=== PATIENT | female | born 1985 | race African-American/Black ===

== ENCOUNTER 2023-11-12 22:18 | Emergency (ER) | payer OTHER, SELFPAY ==
[2023-11-12 22:33] VITALS: BP 144/103
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
[2023-11-12] MEDS: NORVASC 7.5 MG PO (23:47)
[2023-11-12] MEDS: ELIQUIS 5 MG PO (23:48)
[2023-11-12] MEDS: COREG 50 MG PO (23:48)
[2023-11-13 00:01] LABS: % Eosinophils 2.5 % (0-6); % Immature Granulocytes 0.2 % (0-0.5); % Lymphocytes 38.5 % (20.5-51.1); % Monocytes 5.3 % (1.7-9.3); % Neutrophils 52.5 % (42.2-75.2); Absolute Basophils 0.1 10^3/uL (0-0.2); Absolute Eosinophils 0.1 10^3/uL (0-0.7); Absolute Lymphocytes 1.9 10^3/uL (1.2-3.4); Absolute Monocytes 0.3 10^3/uL (0.1-0.6); Absolute Neutrophils 2.6 10^3/uL (1.4-6.5); Hematocrit 30.5 % (37.0-47.0); Mean Corp Hgb Conc. 36.1 g/dL (33.0-37.0); Mean Corpuscular Hgb 32.5 pg (27.0-31.0); Mean Corpuscular Volume 90.2 fL (81.0-99.0); Mean Platelet Volume 8.6 fL (7.4-10.4); Nucleated Red Blood Cells % 0 %; Platelet Count 249 10^3/uL (130-400); Red Blood Cell Count 3.38 10^6/uL (4.20-5.40); White Blood Cell Count 4.9 10^3/uL (4.8-10.8)
[2023-11-13 00:11] LABS: HCG, Serum Qualitative Screen Negative
[2023-11-13 00:14] LABS: Alcohol 165 mg/dl; Blood Urea Nitrogen 18 mg/dl (7-17); Calcium 9.4 mg/dl (8.4-10.2); Carbon Dioxide 23 mmol/L (22-30); Chloride 111 mmol/L (98-107); Estimated Creatinine Clearance 41 ml/min; Glucose 83 mg/dl (70-99); Potassium 4.1 mmol/L (3.5-5.1); Sodium 145 mmol/L (135-145)
[2023-11-13 09:05] VITALS: BP 143/88
== END 2023-11-13 09:13 ==
LOC: EMR 22:18
PROVIDERS: EMERGENCY PHYSICIAN Student in an Organized Health Care Education/Training Program
DX: R45.851 Suicidal ideations (principal); R41.0 Disorientation, unspecified; I12.9 Hypertensive chronic kidney disease with stage 1 through stage 4 chronic kidney disease, or unspecified chronic kidney disease; N18.4 Chronic kidney disease, stage 4 (severe); Z91.148 Patient's other noncompliance with medication regimen for other reason; F43.10 Post-traumatic stress disorder, unspecified; F32.A Depression, unspecified; F41.9 Anxiety disorder, unspecified; F90.9 Attention-deficit hyperactivity disorder, unspecified type; F17.210 Nicotine dependence, cigarettes, uncomplicated; Z90.5 Acquired absence of kidney
CPT/HCPCS: 99285; 80048; 82077; 84703; 85025